=== PATIENT | male | born 1945 | race Caucasian/White ===

== ENCOUNTER 2017-11-18 13:55 | Emergency (ER) | payer OTHER ==
[~2017-11-18] VITALS: Ht 172.7 cm; Wt 108.9 kg
[2017-11-18 14:18] VITALS: BP 166/64
--- NOTE | 2017-11-18 14:33 | NUR ---
72 YO MALE BIB SELF FOR LEFT KNEE PAIN FROM FALL 3 DAYS AGO, ALSO C/O HEMATURIA. AWAKE AND ALERT WALKS WITH ASSIST. USING CANE.
[2017-11-18] MEDS ORDERED: NACL 0.9% 1,000 ML IV SCH (15:57)
[2017-11-18] MEDS ORDERED: KETOROLAC 30 MG/ML VIAL IVP ONE (16:00)
[2017-11-18] MEDS ORDERED: LISI10TA11 PO (16:11)
--- NOTE | 2017-11-18 16:33 | NUR ---
PT AWAITING D/C. VSS. NAD. WILL CONTINUE TO MONITOR.
[2017-11-18 16:47] LABS: BASOPHILS % (AUTO) 0.3 % (0.0-2.0); EOSINOPHILS # (AUTO) 0.2 K/uL (0-0.4); HEMATOCRIT 45.3 % (36-52); HEMOGLOBIN 15.4 g/dL (12.0-18.0); LYMPHOCYTES # (AUTO) 2.1 K/uL (2.0-11.5); LYMPHOCYTES % (AUTO) 30.3 % (20.5-51.1); MEAN CORPUSCULAR HEMOGLOBIN 32 pg (27-31); MEAN CORPUSCULAR HGB CONC 34 g/dL (33-37); MEAN CORPUSCULAR VOLUME 92.6 fL (80-94); MONOCYTES # (AUTO) 0.5 K/uL (0.8-1.0); MONOCYTES % (AUTO) 7.9 % (1.7-9.3); NEUTROPHILS % (AUTO) 58.5 % (42.2-75.2); PLATELET COUNT (AUTO) 208 K/uL (140-450); RED CELL DISTRIBUTION WIDTH 13.8 % (11.6-13.7); WHITE BLOOD COUNT (AUTO) 6.9 K/uL (4.8-10.8)
[2017-11-18 16:55] LABS: ANION GAP 9.8 (8-16); CARBON DIOXIDE 25.1 mmol/L (21-32); CHLORIDE 106 mmol/L (98-107); CREATININE 0.9 mg/dL (0.7-1.3); GLUCOSE 109 mg/dL (74-106); POTASSIUM 3.9 mmol/L (3.5-5.1); SODIUM SERUM 137 mmol/L (136-145); UREA NITROGEN, BLOOD 10 mg/dL (7-18)
[2017-11-18 17:02] LABS: ALBUMIN 3.9 g/dL (3.4-5.0); AMYLASE 71 U/L (25-115); ASPARTATE AMINOTRANSFERASE 31 U/L (15-37); LIPASE 161 U/L (73-393); TOTAL BILIRUBIN 0.4 mg/dL (0.0-1.0)
[2017-11-18 17:52] LABS: APPEARANCE,URINE CLOUDY (CLEAR); BILIRUBIN,URINE 1+ (NEGATIVE); BLOOD, URINE 3+ (NEGATIVE); COLOR,URINE BROWN (YELLOW); LEUKOCYTE ESTERASE ,URINE NEGATIVE (NEGATIVE); NITRITE, URINE POSITIVE (NEGATIVE); UGLUCOSE NEGATIVE (NEGATIVE)
[2017-11-18 17:58] LABS: RBC,URINE TOO NUMEROUS TO COUN /HPF (0-5)
[2017-11-18 17:59] LABS: WBC,URINE TOO MANY TO COUNT /HPF (0-5)
[2017-11-18 18:50] VITALS: BP 166/64
--- NOTE | 2017-11-18 18:50 | NUR ---
Patient discharged with v/s stable. Written and verbal after care instructions given and explained. Patient verbalized understanding. Ambulatory with steady gait. All questions addressed prior to discharge. Advised to follow up with PMD.
== END 2017-11-18 18:50 | disposition home or self-care (01) ==
LOC: MED 13:55
DX: S80.02XA Contusion of left knee, initial encounter (principal); N28.1 Cyst of kidney, acquired; Z79.899 Other long term (current) drug therapy; W10.8XXA Fall (on) (from) other stairs and steps, initial encounter; Y93.89 Activity, other specified; Y92.89 Other specified places as the place of occurrence of the external cause; Y99.8 Other external cause status
CPT/HCPCS: 29505; 36415; 73562; 74176; 80053; 81001; 82150; 83690; 85025; 87086; 96374; 99285; J1885; Q0092

== ENCOUNTER 2017-12-06 18:34 | Inpatient (IN) | payer OTHER ==
[~2017-12-06] VITALS: Ht 172.7 cm; Wt 108.9 kg
[~2017-12-06 18:34] MED LIST: LISI10TA11 PO
--- NOTE | 2017-12-06 18:42 | NUR ---
PT BROUGHT TO ED BED 1 BY MARY DAVIS
[2017-12-06 18:46] VITALS: BP_SYST 181; BP_SYST 198; BP_DIAS 101
--- NOTE | 2017-12-06 18:54 | NUR ---
C/O PAINFUL URINATION AND URGENCY, ASSOCIATED WITH BRIGHT RED BLOOD AND CLOTS IN URINE X 1 WEEK. REPORTS PAIN WORSE WHEN SITTING, "FEELS LIKE IT PUTS PRESSURE ON MY BLADDER AND MAKES ME WANT TO PEE." PT ALSO REPORTS HE HAD A MECH FALL 1 WEEK AGO, FOLLOWED BY MODERATE BLOOD IN HIS URINE. WAS SEEN BY HIS PCP AFTER THE FALL AND WAS TOLD HE MAY HAVE RUPTURED A KIDNEY CYST. DENIES ABD PAIN, FEVER/CHILLS, DIZZINESS OR SOB. PT GIVEN URINAL FOR URINE SAMPLE. NAD NOTED/STATED OTHERWISE. PLACED ON ALL MONITORS. DR ESTEBAN NOTIFIED OF PT CONDITION, PENDING MSE.
--- NOTE | 2017-12-06 18:54 | NUR ---
Note undone in EDM - 12/06/17 at 1907 by [facility] C/O PAINFUL URINATION AND URGENCY, ASSOCIATED WITH BRIGHT RED BLOOD AND CLOTS IN URINE X 4 DAYS. REPORTS PAIN WORSE WHEN SITTING, "FEELS LIKE IT PUTS PRESSURE ON MY BLADDER AND MAKES ME WANT TO PEE." PT WITH H/O ENLARGED PROSTATE. DENIES FEVER/CHILLS, DIZZINESS OR SOB. PT GIVEN URINAL FOR URINE SAMPLE. NAD NOTED/STATED OTHERWISE. PLACED ON ALL MONITORS. DR ESTEBAN NOTIFIED OF PT CONDITION, PENDING MSE.
--- NOTE | 2017-12-06 19:02 | NUR ---
100 ML OF BRIGHT RED THICK URINE OBTAINED FROM URINAL. SENT TO LAB FOR UA
--- NOTE | 2017-12-06 19:06 | NUR ---
DR ARANA AT BEDSIDE TO JASSI
--- NOTE | 2017-12-06 19:17 | NUR ---
SHIFT REPORT GIVEN TO JAYNA DAVIS, CARE TURNED OVER.
--- NOTE | 2017-12-06 19:18 | NUR ---
RECIEVED REPORT FROM TUNDE RN, PT IN STABLE CONDITION
[2017-12-06] MEDS ORDERED: NACL 0.9% 1,000 ML IV ONE (19:20)
[2017-12-06] MEDS ORDERED: PHENAZOPYRIDINE 100 MG TAB PO ONE (19:20)
[2017-12-06] MEDS ORDERED: PHENAZOPYRIDINE 100 MG TAB ONE (19:39)
[2017-12-06 19:42] LABS: BASOPHILS % (AUTO) 0.3 % (0.0-2.0); EOSINOPHILS # (AUTO) 0.1 K/uL (0-0.4); EOSINOPHILS % (AUTO) 2.1 % (0.0-4.0); HEMATOCRIT 42.1 % (36-52); HEMOGLOBIN 14.4 g/dL (12.0-18.0); LYMPHOCYTES # (AUTO) 1.6 K/uL (2.0-11.5); LYMPHOCYTES % (AUTO) 24.9 % (20.5-51.1); MEAN CORPUSCULAR HEMOGLOBIN 32 pg (27-31); MEAN CORPUSCULAR HGB CONC 34 g/dL (33-37); MEAN CORPUSCULAR VOLUME 92.9 fL (80-94); MONOCYTES # (AUTO) 0.4 K/uL (0.8-1.0); MONOCYTES % (AUTO) 6.9 % (1.7-9.3); NEUTROPHILS # (AUTO) 4.3 K/uL (1.8-7.7); NEUTROPHILS % (AUTO) 65.8 % (42.2-75.2); PLATELET COUNT (AUTO) 217 K/uL (140-450); RED BLOOD CELL COUNT(AUTO) 4.53 MIL/uL (4.20-6.10); RED CELL DISTRIBUTION WIDTH 13.9 % (11.6-13.7); WHITE BLOOD COUNT (AUTO) 6.5 K/uL (4.8-10.8)
[2017-12-06 20:11] LABS: ANION GAP 16.5 (8-16); CARBON DIOXIDE 23.2 mmol/L (21-32); CHLORIDE 104 mmol/L (98-107); GLUCOSE 130 mg/dL (74-106); POTASSIUM 3.7 mmol/L (3.5-5.1); SODIUM SERUM 140 mmol/L (136-145)
[2017-12-06 20:12] LABS: CREATININE 1.2 mg/dL (0.7-1.3); UREA NITROGEN, BLOOD 15 mg/dL (7-18)
[2017-12-06 20:16] LABS: ALBUMIN 4.1 g/dL (3.4-5.0); ASPARTATE AMINOTRANSFERASE 27 U/L (15-37); TOTAL BILIRUBIN 0.3 mg/dL (0.0-1.0)
--- NOTE | 2017-12-06 20:28 | NUR ---
CALLED CT TO ASK FOR STATUS, STATED WAITING ON LABS BEFORE THEY STAFFING ADMINISTRATOR PT
[2017-12-06 20:43] LABS: PROTHROMBIN TIME 10.2 secs (10.8-13.4)
--- NOTE | 2017-12-06 20:50 | NUR ---
PT TAKEN TO CT AT THIS TIME
[2017-12-06 21:20] LABS: APPEARANCE,URINE BLOODY (CLEAR); COLOR,URINE RED (YELLOW)
[2017-12-06 21:23] LABS: RBC,URINE TOO NUMEROUS TO COUN /HPF (0-5); WBC,URINE 0-5 (RARE) /HPF (0-5)
--- NOTE | 2017-12-06 22:12 | NUR ---
PER ADMITTING, CALLING [facility] FOR AUTHORIZATION TO BEGIN ADMISSION PROCESS
[2017-12-06] MEDS ORDERED: LIDOCAINE JELLY 2% 30 ML TUBE TP ONE ×2 (22:20→22:43)
[2017-12-06] MEDS ORDERED: cefTRIAXone 1,000 MG VIAL ONE (22:48)
--- NOTE | 2017-12-06 22:55 | NUR ---
[facility] CALLING FOR REPORT FROM RYAN DORANTES, PER DR ARANA PT IS STABLE FOR TRANSPORT AT THIS TIME.
--- NOTE | 2017-12-06 23:04 | NUR ---
PEGGY FROM [facility] CALLED TO GIVE UPDATE. AWAITING CALL FROM DR STEPHENS FOR MD TO MD REPORT. PENDING TRANSER TO [facility]. [facility] FAXED AT THIS TIME.
--- NOTE | 2017-12-06 23:20 | NUR ---
3-WAY GARZON STARTED AT THIS TIME, RED BELL URINE NOTED IN GARZON CATHETER
--- NOTE | 2017-12-06 23:34 | NUR ---
CALLED LAB TO ASK ABOUT BLOOD CULTURES, LAB STATED THAT SHE IS WAITING FOR DR. GILL ORDERS AT THIS TIME
--- NOTE | 2017-12-06 23:36 | NUR ---
1200 ML THROUGH 3-WAY GARZON IRRIGATION IN AT THIS TIME. PT TOLERATING WELL
--- NOTE | 2017-12-06 23:45 | NUR ---
1000 ML EMPTIED FROM GARZON BAG AT THIS TIME
--- NOTE | 2017-12-06 23:54 | NUR ---
800 ML EMPTIED FROM GARZON BAG AT THIS TIME
--- NOTE | 2017-12-07 00:22 | NUR ---
PT RESTING IN BED AT THIS TIME COMFROTABLY. NAD. PT TOLERATING IRRIGATION WELL
--- NOTE | 2017-12-07 00:25 | NUR ---
SHANELLE CALLED ASKING IF MD HAD CALLED TO SPEAK TO ER MD, STILL WAITING FOR CALL AT THIS TIME
--- NOTE | 2017-12-07 00:26 | NUR ---
1000 ML TAKEN OUT OF GARZON BAG AT THIS TIME
--- NOTE | 2017-12-07 00:30 | NUR ---
5100 ML LEFT ON BAG
--- NOTE | 2017-12-07 00:52 | NUR ---
1000 ML OF RED BELL URINE EMPTIED AT THIS TIME
--- NOTE | 2017-12-07 01:12 | NUR ---
800 ML OUT OF GARZON BAG BELL RED URINE NOTED
--- NOTE | 2017-12-07 01:25 | NUR ---
900 ML EMPTIED OF BELL RED URINE
--- NOTE | 2017-12-07 01:30 | NUR ---
0130 AT [facility] ACCEPTED PT AT THIS TIME. AWAITING BED ASSIGNMENT AND TRANSPORT ETA FROM [facility] AT THIS TIME.
--- NOTE | 2017-12-07 01:38 | NUR ---
700 ML OF BELL RED URINE EMPTIED
[2017-12-07 01:57] LABS: BASOPHILS % (AUTO) 0.3 % (0.0-2.0); EOSINOPHILS % (AUTO) 0.1 % (0.0-4.0); HEMATOCRIT 37.9 % (36-52); HEMOGLOBIN 12.7 g/dL (12.0-18.0); LYMPHOCYTES # (AUTO) 1.2 K/uL (2.0-11.5); LYMPHOCYTES % (AUTO) 12.8 % (20.5-51.1); MEAN CORPUSCULAR HEMOGLOBIN 31 pg (27-31); MEAN CORPUSCULAR HGB CONC 34 g/dL (33-37); MEAN CORPUSCULAR VOLUME 93.1 fL (80-94); MONOCYTES # (AUTO) 0.3 K/uL (0.8-1.0); MONOCYTES % (AUTO) 3.4 % (1.7-9.3); NEUTROPHILS # (AUTO) 8.2 K/uL (1.8-7.7); NEUTROPHILS % (AUTO) 83.4 % (42.2-75.2); PLATELET COUNT (AUTO) 210 K/uL (140-450); RED BLOOD CELL COUNT(AUTO) 4.07 MIL/uL (4.20-6.10); RED CELL DISTRIBUTION WIDTH 13.5 % (11.6-13.7); WHITE BLOOD COUNT (AUTO) 9.8 K/uL (4.8-10.8)
--- NOTE | 2017-12-07 02:07 | NUR ---
PT RESTING IN BED COMFORTABLY, NO S/S OF DISTRESS NOTED
--- NOTE | 2017-12-07 03:28 | NUR ---
1000 ML BELL RED URINE DRAINED AT THIS TIME
--- NOTE | 2017-12-07 03:30 | NUR ---
PT RESTING COMFORTABLY IN BED. NAD. ALL NEEDS MET.
--- NOTE | 2017-12-07 03:39 | NUR ---
Hoang antunez in EDM - 12/07/17 at 0341 by [facility] 0130 AT [facility] ACCEPTED PT AT THIS TIME. AWAITING BED ASSIGNMENT AND TRANSPORT ETA FROM [facility] AT THIS TIME.
--- NOTE | 2017-12-07 03:42 | NUR ---
STILL UPDATE PROVIDED FROM [facility] AT THIS TIME. AWAITING BED ASSIGNMENT AND TRANSPORT INFO/ETA. CALLING [facility] FOR INFO.
--- NOTE | 2017-12-07 04:00 | NUR ---
PER [facility] NO ORDERS OR BED ASSIGNED AT [facility]. DUE TO LAPSE OF TIME ER OKAY TO ADMIT TO [facility]. AUTHORIZATION NUMBER GIVEN AT THIS TIME. [facility] CALLED AT THIS TIME
[2017-12-07] MEDS ORDERED: ACETAMINOPHEN 325 MG TAB PO PRN (04:15)
[2017-12-07] MEDS ORDERED: MORPHINE SULFATE 2 MG/ML SYR IVP PRN (04:15)
[2017-12-07] MEDS ORDERED: HYDROcodone/APAP 5/325 MG 1 TAB TAB PO PRN (04:15)
[2017-12-07] MEDS ORDERED: LORazepam 2 MG/ML VIAL IVP PRN (04:15)
[2017-12-07] MEDS ORDERED: ONDANSETRON 4 MG/2 ML VIAL IVP PRN (04:15)
--- NOTE | 2017-12-07 04:30 | NUR ---
[id number], OUT-PUT-
--- NOTE | 2017-12-07 04:40 | NUR ---
Patient will be admitted to care of DR. BURRELL. Admited to MED/SURG. Will go to room 106A. Belongings list completed. Report to NEERAJ DAVIS.
--- NOTE | 2017-12-07 04:45 | NUR ---
RECEIVED REPORT FROM METAL TANK ERECTOR FOR CONTINUITY OF CARE. PT IS A/OX4, ON ROOM AIR. PT IS ABLE TO MAKE NEEDS KNOWN, ABLE TO FOLLOW COMMANDS. PT AMBULATES BUT HAS HISTORY OF FALLS AND USES CANE, SKIN IS INTACT. PT HAS GARZON CATHETER WITH IRRIGATION IN PLACE, URINE IS BRIGHT RED WITH SOME CLOTS. PT HAS A 20G IV TO RIGHT AC, ASYMPTOMATIC. DISCUSSED PLAN OF CARE WITH PT, PT VERBALIZED UNDERSTANDING. VITAL SIGNS WITHIN NORMAL LIMITS. PT STABLE, NO SIGNS OF DISTRESS NOTED AT THIS TIME. BED IN LOWEST POSITION, BED ALARM ON. CALL LIGHT WITHIN REACH, WILL CONTINUE TO MONITOR.
[2017-12-07] MEDS: NACL 0.9% 1,000 ML IV SCH ×2 (05:00→19:42)
--- NOTE | 2017-12-07 05:29 | NUR ---
ADMINISTERED BLOOD PRESSURE MEDICATION, PT TOLERATED WELL.
[2017-12-07] MEDS ORDERED: LISINOPRIL 10 MG TAB PO ONE (05:30)
[2017-12-07 05:48] VITALS: BP 171/73
[2017-12-07] MEDS ORDERED: PNEUMOCOCCAL VACCINE 23 MCG/0.5 ML VIAL IMVAC PRN (06:05)
--- NOTE | 2017-12-07 07:29 | NUR ---
ENDORSED PT TO DAY SHIFT RN FOR CONTINUITY OF CARE. PT IN STABLE CONDITION.
--- NOTE | 2017-12-07 07:30 | NUR ---
RECEIVED REPORT FROM PM NURSE AT THE BEDSIDE. PT HAS GARZON CATHETER, HAS RED COLORED URIN. CHECKED HIS PERINIEAL AREA, HAS BLOOD LEAKING FORM THE PENILE REGION. PT STATES THAT HE HAS BEEN BLEEDING FROM PERENNIAL REGION SINCE SUNDAY, FROM SUNDAY IT WAS WORSE. CLEANED THE PT. DENIES PAIN, NO BLADDER DISTENSION OBSERVED IN PT. FC BEING CONTINUOUSLY IRRIGATED WITH NS WIDE OPEN, 3000 ML BAG. CHANGE THE PT, APPEARS CALM AND COOPERATIVE. STATES TO BE MORE COMFORTABLE TODAY THAN YESTERDAY. EMPTIED THE FC BAG OF TOTAL 3700. HUNG ONE MORE 3000 ML IVF FOR FC IRRIGATION. HAS IV ACCESS ON RT FA 20 G, NS INFUSING AT 80 ML/HR. URINE COLOR GETTING MORE PHOTOVOLTAIC INSTALLATION TECHNICIAN RED. NO SIGN OF DISTRESS. PLACED CALL LIGHT WITHIN PT REACH. INFORMED TO USE IT FOR ANY HELP. VERBALIZED UNDERSTANDING.WILL CONTINUE TO MONITOR PT.
[2017-12-07 08:00] VITALS: BP 135/61
--- NOTE | 2017-12-07 08:44 | NUR ---
PATIENT HAS BEEN SCREENED AND CATEGORIZED MODERATE NUTRITION RISK. PATIENT WILL BE SEEN WITHIN 3-5 DAYS OF ADMISSION. 12/09/17 12/11/[address]
[2017-12-07] MEDS ORDERED: LISINOPRIL 10 MG TAB PO SCH (09:00)
--- NOTE | 2017-12-07 09:03 | NUR ---
ADMINISTERED MEDS TO PT . TOLERATED WELL. DR BURRELL AT THE BEDSIDE. PT STILL HAS SLIGHT BLEEDING FROM URETHRA, MD AWARE. PT URINE MORE LIGHT COLOR. WILL CONTINUE TO MONITOR PT.
--- NOTE | 2017-12-07 10:41 | NUR ---
CHECKED ON PT. EMPTIED HIS GARZON BAG, FULL DUE TO IRRIGATION. URINE COLOR LIGHT RED. VOLUME DRAINED 3000 ML. HUNG TWO NEW BAGS OF 3000ML STERILE WATER FOR IRRIGATION. PT DENIES PAIN , STABLE. NO SIGN OF DISTRESS NOTED. ALL SAFETY MEASURE IN PLACE. WILL CONTINUE TO MONITOR PT.
--- NOTE | 2017-12-07 10:51 | NUR ---
CM NOTE PER SENIOR LINUX SYSTEMS ENGINEER NEYMAR, REVIEWS SHOULD ONLY BE SENT TO [facility]. INITIAL REVIEW FAXED TO [facility] [phone] PH# [phone] EARL # [phone].
--- NOTE | 2017-12-07 12:20 | NUR ---
CHECKED ON PT. EMPTIED HIS FC BAG, 1700 ML. IRRIGATION BAG STILL INFUSING. URINE COLOR LIGHT RED. WILL CONTINUE TO MONITOR PT.
--- NOTE | 2017-12-07 14:07 | NUR ---
CHECKED ON PT. DRAINED 1700 ML URINE FROM GARZON BAG. LIGHT RED COLOR URINE. STARTED 2 BAGS 3000 ML EACH IRRIGATING BAG FOR PT. NO DRAINAGE NOTED FROM PERENNIAL AREA. PT DENIES ANY PAIN OR DISCOMFORT. NO BLOOD CLOTS OBSERVED IN URINE. PT CALM AND RESTING ON HIS BED. INFORMED TO USE CALL [facility] FOR ANY HELP. WILL CONTINUE TO MONITOR PT.
[2017-12-07 16:00] VITALS: BP 129/85
--- NOTE | 2017-12-07 19:00 | NUR ---
TOTAL BAGS OF IRRIGATION USED 5 X 3000 ML= [id number] ML. TOTAL OUTPUT FROM IRRIGATION IN GARZON BAG 00025 DRAINED.STILL SOME RESIDUAL LEFT IN GARZON BAG. PT TO BE DC WITH NEW GARZON CATHETER. PER CHARGE NURSE INA, DR BURRELL TALKED TO UROLOGIST, CLEAR TO BE DISCHARGE HOME WITH NEW GARZON CATHETER IN PLACE. PT TO SEE HIS UROLOGIST AFTER DC FROM HOSPITAL . EXPLAINED TO PT. VERBALIZED UNDERSTANDING. INFORMATION CONVEYED TO PM NURSE. VERBALIZED UNDERSTANDING. PT IN NO DISTRESS. PT CALM AND COOPERATIVE. WILL CONTINUE TO MONITOR PT.
--- NOTE | 2017-12-07 19:05 | NUR ---
ENDORSED PT TO PM NURSE AT BEDSIDE. PT IN STABLE CONDITION.
--- NOTE | 2017-12-07 19:06 | NUR ---
RECEIVED REPORT FROM DAY SHIFT RN FOR CONTINUITY OF CARE. PT IS A/OX4, ON ROOM AIR. PT IS ABLE TO MAKE NEEDS KNOWN, ABLE TO FOLLOW COMMANDS. PT AMBULATES BUT HAS HISTORY OF FALLS AND USES CANE, SKIN IS INTACT. PT HAS GARZON CATHETER WITH IRRIGATION IN PLACE, URINE IS BRIGHT RED WITH SOME CLOTS. PT HAS A 20G IV TO RIGHT AC, ASYMPTOMATIC. DISCUSSED PLAN OF CARE WITH PT, PT VERBALIZED UNDERSTANDING. VITAL SIGNS WITHIN NORMAL LIMITS. PT STABLE, NO SIGNS OF DISTRESS NOTED AT THIS TIME. BED IN LOWEST POSITION, BED ALARM ON. CALL LIGHT WITHIN REACH, WILL CONTINUE TO MONITOR.
[2017-12-07 19:32] VITALS: BP 132/63
[2017-12-07 20:55] VITALS: BP 132/63
--- NOTE | 2017-12-07 21:45 | NUR ---
EDUCATED PT ON GARZON CATHETER CARE, WHAT SIGNS/SYMPTOMS TO LOOK OUT FOR AND PROVIDED HANDOUTS. LET HIM KNOW TO FOLLOW UP WITH UROLOGIST DR. MOORE, PT STATES HE WILL GIVE HIM A CALL ON SUNDAY. GAVE DISCHARGE INSTRUCTIONS, PT VERBALIZED UNDERSTANDING. GAVE PT OPPORTUNITY TO ASK QUESTIONS, PT STATES HE HAS HAD A GARZON CATHETER AT HOME SOME TIME AGO AND HE'S CONFIDENT HE KNOWS HOW TO CARE FOR IT. PT DID NOT WANT PNA VACCINE BECAUSE HIS DAUGHTER WAS OUTSIDE WAITING. CHANGED GARZON CATHETER AND WROTE DATE AND TIME OF INSERTION IN BACK OF THE BAG OF THE NEW GARZON. HELPED PT GET DRESSED, REMOVED ARMBANDS AND IV, CATHETER INTACT. PT LEFT UNIT IN WHEELCHAIR WITH CHIEF DESIGN DRAFTER, PT IN STABLE CONDITION AND CARRYING ALL HIS BELONGINGS AND DISCHARGE INSTRUCTIONS.
--- NOTE | 2017-12-07 22:10 | NUR ---
PAGED DR BURRELL FOR ADMISSION ORDER BECAUSE PT LEFT ALREADY. DR MC CALLED AND SAID HE DOESN'T KNOW ANYTHING ABOUT THAT BUT IF THE PT LEFT THE HOSPITAL ALREADY THERE IS NOTHING WE CAN DO.
[2017-12-08] MEDS ORDERED: ASPIRIN 81 MG TAB.CHEW PO SCH (09:00)
--- NOTE | 2017-12-10 08:13 | NUR ---
FAXED DISCHARGE SUMMARY TO [facility] [phone]
== END 2017-12-07 21:45 | disposition home or self-care (01) | DRG 700 ==
LOC: MED 18:34 → MTU 12-07 04:17
PROVIDERS: ADMIT Hospitalist; ATTEND Hospitalist
PROC: 3E1K78Z Irrigation of Genitourinary Tract using Irrigating Substance, Via Natural or Artificial Opening (ICD-10-PCS; principal; 2017-12-07)
DX: N28.1 Cyst of kidney, acquired (principal); R31.0 Gross hematuria; I10 Essential (primary) hypertension; Z79.899 Other long term (current) drug therapy
CPT/HCPCS: 36415; 51702; 76770; 80053; 81001; 85025; 85610; 85730; 86886; 86900; 86901; 87040; 87081; 96365; 99285; J0696; J7030; J7060; Q0092; Q9967

== ENCOUNTER 2018-09-24 13:00 | Emergency (ER) | payer OTHER ==
[~2018-09-24] VITALS: Ht 172.7 cm; Wt 108.0 kg
[2018-09-24 13:25] VITALS: BP 132/66
--- NOTE | 2018-09-24 13:26 | NUR ---
PATIENT AMBULATED TO BED 11.
[2018-09-24] MEDS ORDERED: KETOROLAC 60 MG/2 ML VIAL IM ONE (13:55)
[2018-09-24] MEDS ORDERED: MORPHINE SULFATE 4 MG/ML SYR IM ONE (13:55)
--- NOTE | 2018-09-24 15:00 | NUR ---
pt reports pain relief, pt sitting in bed awake and alert.
[2018-09-24 15:16] VITALS: BP 130/65
== END 2018-09-24 15:15 | disposition home or self-care (01) ==
LOC: MED 13:00
DX: M47.896 Other spondylosis, lumbar region (principal); M51.16 Intervertebral disc disorders with radiculopathy, lumbar region; I10 Essential (primary) hypertension; Z79.899 Other long term (current) drug therapy
CPT/HCPCS: 72131; 96372; 99284; J1885; J2270

== ENCOUNTER 2019-11-03 11:28 | Emergency (ER) | payer OTHER ==
[~2019-11-03] VITALS: Ht 172.7 cm; Wt 107.5 kg
[2019-11-03 11:29] VITALS: BP 128/59
--- NOTE | 2019-11-03 11:36 | NUR ---
74 Y/M PRESENTS TO ED FOR HEMATURIA X 3 WEEK, C CLOTS, DYSURIA AND FREQUENCY. LOW ABD PAIN 11/02. DENIES N/V/D OR FEVER. HX- PROSTATE, HTN RX-FLOMAX AND LISINOPRIL NKDA
--- NOTE | 2019-11-03 12:00 | NUR ---
Dr. Luo is evaluating the patient at bedside.
[2019-11-03 13:19] LABS: BASOPHILS % (AUTO) 0.5 % (0.0-2.0); EOSINOPHILS % (AUTO) 0.3 % (0.0-4.0); HEMATOCRIT 32.7 % (36-52); HEMOGLOBIN 11.1 g/dL (12.0-18.0); LYMPHOCYTES % (AUTO) 12.9 % (20.5-51.1); MEAN CORPUSCULAR HEMOGLOBIN 32 pg (27-31); MEAN CORPUSCULAR HGB CONC 34 g/dL (33-37); MEAN CORPUSCULAR VOLUME 94.1 fL (80-94); MONOCYTES # (AUTO) 0.4 K/uL (0.8-1.0); MONOCYTES % (AUTO) 5.7 % (1.7-9.3); NEUTROPHILS % (AUTO) 80.6 % (42.2-75.2); PLATELET COUNT (AUTO) 256 K/uL (140-450); RED BLOOD CELL COUNT(AUTO) 3.48 MIL/uL (4.20-6.10); RED CELL DISTRIBUTION WIDTH 13.8 % (11.6-13.7); WHITE BLOOD COUNT (AUTO) 7.5 K/uL (4.8-10.8)
[2019-11-03 13:42] LABS: PROTHROMBIN TIME 10.5 secs (10.8-13.4)
[2019-11-03 13:53] LABS: ALBUMIN 3.7 g/dL (3.4-5.0); ANION GAP 15.1 (8-16); ASPARTATE AMINOTRANSFERASE 19 U/L (15-37); CARBON DIOXIDE 22.3 mmol/L (21-32); CHLORIDE 101 mmol/L (98-107); CREATININE 1.5 mg/dL (0.6-1.3); GLUCOSE 120 mg/dL (74-106); POTASSIUM 4.4 mmol/L (3.5-5.1); SODIUM SERUM 134 mmol/L (136-145); TOTAL BILIRUBIN 0.5 mg/dL (0.0-1.0); UREA NITROGEN, BLOOD 13 mg/dL (7-18)
[2019-11-03 14:42] VITALS: BP 128/59
== END 2019-11-03 14:43 | disposition home or self-care (01) ==
LOC: MED 11:28
DX: R31.9 Hematuria, unspecified (principal); N28.9 Disorder of kidney and ureter, unspecified; D64.9 Anemia, unspecified; I10 Essential (primary) hypertension; N40.0 Benign prostatic hyperplasia without lower urinary tract symptoms
CPT/HCPCS: 36415; 80053; 85025; 85610; 85730; 87086; 99283

== ENCOUNTER 2020-02-06 15:37 | Emergency (ER) | payer OTHER ==
[~2020-02-06] VITALS: Ht 172.7 cm; Wt 104.3 kg
[2020-02-06 15:44] VITALS: BP 136/90
--- NOTE | 2020-02-06 15:47 | NUR ---
taken to bed 3 via w/c
[2020-02-06] MEDS ORDERED: HYDROcodone/APAP 5/325 MG 1 TAB TAB PO ONE (16:00)
--- NOTE | 2020-02-06 16:02 | NUR ---
74 YEAR OLD MALE COMPLAINS OF BILATERAL KNEE PAIN X YESTERDAY AFTER FALLING DOWN A STAIR. PT STATES HE IS ABLE TO AMBULATE BUT USES A WALKER NOW. PT AOX4, BREATHING EVEN AND UNLABORED, SKIN WARM AND DRY. BED IN LOWEST POSITION, LOCKED, BED RAIL UPX1. PMH - HTN ALLERGIES - NKA
[2020-02-06 17:25] VITALS: BP 128/73
--- NOTE | 2020-02-06 17:25 | NUR ---
Patient discharged with v/s stable. Written and verbal after care instructions about knee pain given and explained. Patient alert, oriented and verbalized understanding of instructions. Ambulatory with steady gait. All questions addressed prior to discharge. ID band removed. Patient advised to follow up with PMD. Rx of norco given. Patient educated on indication of medication including possible reaction and side effects. Opportunity to ask questions provided and answered.
== END 2020-02-06 17:25 | disposition home or self-care (01) ==
LOC: MED 15:37
DX: M25.562 Pain in left knee (principal); M25.561 Pain in right knee; I10 Essential (primary) hypertension; Z79.899 Other long term (current) drug therapy; W19.XXXA Unspecified fall, initial encounter; Y93.89 Activity, other specified; Y92.89 Other specified places as the place of occurrence of the external cause; Y99.8 Other external cause status
CPT/HCPCS: 29505; 73562; 99283

== ENCOUNTER 2022-02-20 19:21 | Emergency (ER) | payer BC, OTHER ==
[~2022-02-20] VITALS: Ht 172.7 cm; Wt 106.6 kg
[~2022-02-20 19:21] MED LIST changes: +LISI-486 PO; -LISI10TA11 PO
--- NOTE | 2022-02-20 19:30 | NUR ---
ATTEMPTED TO CALL PATIENT WITH NO RESPONSE
[2022-02-20 20:06] VITALS: BP 119/72
--- NOTE | 2022-02-20 20:14 | NUR ---
TO BED 12
--- NOTE | 2022-02-20 20:15 | NUR ---
Pt coming from home ambulatory with steady gait. Pt c/o urinary frequency and retention. States he has been having prostate issues for several years and sees a urologist. But states once or twice a year he abruptly has retention and frequency and goes to hospitals to get a cath placed. VSS. A&Ox4, Skin intact. No chest pain and no sob. Deneis n/v. No testicular pain. NKA. Bed in lowest position.
--- NOTE | 2022-02-20 21:00 | NUR ---
ER physician at bedside examining pt.
--- NOTE | 2022-02-20 21:42 | NUR ---
electrical engineering technician at bedside.
[2022-02-20 21:54] LABS: BASOPHILS % (AUTO) 0.1 % (0.0-2.0); EOSINOPHILS % (AUTO) 0.1 % (0.0-4.0); HEMATOCRIT 40.9 % (36-52); HEMOGLOBIN 14.1 g/dL (12.0-18.0); LYMPHOCYTES # (AUTO) 0.3 K/uL (2.0-11.5); LYMPHOCYTES % (AUTO) 2.9 % (20.5-51.1); MEAN CORPUSCULAR HEMOGLOBIN 32 pg (27-31); MEAN CORPUSCULAR HGB CONC 34 g/dL (33-37); MEAN CORPUSCULAR VOLUME 91.8 fL (80-94); MONOCYTES # (AUTO) 0.4 K/uL (0.8-1.0); MONOCYTES % (AUTO) 4.2 % (1.7-9.3); NEUTROPHILS # (AUTO) 9.3 K/uL (1.8-7.7); NEUTROPHILS % (AUTO) 92.7 % (42.2-75.2); PLATELET COUNT (AUTO) 222 K/uL (140-450); RED BLOOD CELL COUNT(AUTO) 4.46 MIL/uL (4.20-6.10); RED CELL DISTRIBUTION WIDTH 13.5 % (11.6-13.7)
--- NOTE | 2022-02-20 22:10 | NUR ---
Unsuccessful to place barton catheter and also unsuccessful to place coude cath. Another nurse will try with coude cath.
[2022-02-20 22:26] LABS: ANION GAP 18.4 (8-16); CARBON DIOXIDE 19.4 mmol/L (21-32); CHLORIDE 98 mmol/L (98-107); CREATININE 1.2 mg/dL (0.6-1.3); GLUCOSE 188 mg/dL (74-106); POTASSIUM 3.8 mmol/L (3.5-5.1); SODIUM SERUM 132 mmol/L (136-145); UREA NITROGEN, BLOOD 17 mg/dL (7-18)
--- NOTE | 2022-02-20 22:31 | NUR ---
2nd nurse also unsuccessful to place cath on pt. Dr. Jewell notified.
--- NOTE | 2022-02-20 23:01 | NUR ---
Pt still unable to provide urine at this time.
--- NOTE | 2022-02-21 00:16 | NUR ---
Urine collected and sent to lab.
[2022-02-21 01:05] LABS: APPEARANCE,URINE HAZY (CLEAR); BILIRUBIN,URINE NEGATIVE (NEGATIVE); BLOOD, URINE 3+ (NEGATIVE); COLOR,URINE RED (YELLOW); LEUKOCYTE ESTERASE ,URINE 2+ (NEGATIVE); NITRITE, URINE POSITIVE (NEGATIVE); UGLUCOSE 1+ (NEGATIVE)
[2022-02-21 01:10] LABS: RBC,URINE TOO NUMEROUS TO COUN /HPF (0-5)
[2022-02-21] MEDS ORDERED: CEPH-588 PO (01:50)
--- NOTE | 2022-02-21 01:50 | NUR ---
Patient does not wish to proceed with medical care recommended by Dr. Jewell. Patient given information related to possible complications, up to and including , which could occur as a result of leaving hospital at this time. Patient verbalizes understanding of risks involved leaving against medical advice. Patient has signed AMA form.
[2022-02-21 02:04] VITALS: BP 134/76
--- NOTE | 2022-02-21 02:04 | NUR ---
Hoang antunez in EDM - 02/21/22 at 0213 by [id number] Patient discharged with v/s stable. Written and verbal after care instructions given and explained. Patient verbalized understanding. Ambulatory with steady gait. All questions addressed prior to discharge. Advised to follow up with PMD.
[2022-02-23] MEDS ORDERED: TAMS0.4C96 PO (17:03)
[2022-02-23] MEDS ORDERED: LISI40TA12 PO (17:03)
== END 2022-02-20 20:14 | disposition left against medical advice (07) ==
LOC: MED 19:21
DX: R33.9 Retention of urine, unspecified (principal)
CPT/HCPCS: 36415; 80048; 81001; 85025; 87086; 99284

== ENCOUNTER 2022-02-21 10:03 | Emergency (ER) | payer BC ==
[~2022-02-21] VITALS: Ht 172.7 cm; Wt 103.9 kg
[~2022-02-21 10:03] MED LIST changes: +CEPH-588 PO
[2022-02-21 10:20] VITALS: BP 196/78
--- NOTE | 2022-02-21 10:34 | NUR ---
DR ARANA AT BEDSIDE.
--- NOTE | 2022-02-21 10:34 | NUR ---
76 Y/O M BIB SELF C/O URINARY RETENTION/PRESSURE AND PAIN 8/10 PER PT WAS SEEN IN THE ED PREVIOUSLY FOR THE SAME ISSUE BUT UNABLE TO PERFORM A CATHETERIZATION. DINO PMH: BPH, HTN
[2022-02-21] MEDS ORDERED: cefTRIAXone 1,000 MG in LIDOCAINE MPF 1% 2.1 ML IM ONE (10:40)
[2022-02-21] MEDS ORDERED: cefTRIAXone 1,000 MG VIAL ONE ×2 (11:00→11:02)
[2022-02-21] MEDS ORDERED: LIDOCAINE MPF 1% 5 ML ONE (11:02)
--- NOTE | 2022-02-21 11:05 | NUR ---
76/M PRESENTS TO ED WITH C/O URINARY RETENTION AND 8/10 PRESSURE LIKE PAIN IN LOWER ABDOMEN. STATES WAS RECENTLY SEEN HERE FOR SAME SYMPTOMS WITH NO RELIEF.
[2022-02-21 11:16] VITALS: BP 147/77
--- NOTE | 2022-02-21 12:45 | NUR ---
PATIENT MOVED TO B
--- NOTE | 2022-02-21 14:15 | NUR ---
Patient discharged with v/s stable. Written and verbal after care instructions ABOUT UTI AND ACUTE URINARY RETENTION given and explained. Patient verbalized understanding. Ambulatory with steady gait. All questions addressed prior to discharge. Advised to follow up with PMD.
[2022-02-23] MEDS ORDERED: TAMS0.4C96 PO (17:03)
[2022-02-23] MEDS ORDERED: LISI40TA12 PO (17:03)
== END 2022-02-21 14:15 | disposition home or self-care (01) ==
LOC: MED 10:03
DX: N39.0 Urinary tract infection, site not specified (principal); I10 Essential (primary) hypertension; Z79.899 Other long term (current) drug therapy; Z98.890 Other specified postprocedural states
CPT/HCPCS: 96372; 99283; J0696; J2001; 81002